=== PATIENT | female | born 1945 | race Caucasian/White ===

== ENCOUNTER 2021-03-12 16:17 | Observation (INO) | payer MEDICARE, OTHER ==
[~2021-03-12] VITALS: Ht 157.5 cm; Wt 63.8 kg
[2021-03-12 16:22] VITALS: BP 130/61
[2021-03-12 16:48] LABS: ABSOLUTE BASOPHILS 0.1 thou/uL (0.0-0.2); ABSOLUTE EOSINOPHILS 0.1 thou/uL (0.0-0.7); ABSOLUTE LYMPHOCYTES 1.8 thou/uL (0.8-5.3); ABSOLUTE MONOCYTES 0.7 thou/uL (0.0-1.2); ABSOLUTE NEUTROPHILS 4.4 thou/uL (1.6-8.1); BASOPHILS 0.8 %; EOSINOPHILS 1.2 %; HEMATOCRIT 39.2 % (37.0-47.0); LYMPHOCYTES 25.5 %; MCH 29.1 pg (26.0-34.0); MCHC 33.3 g/dL (28.0-37.0); MCV 87.4 fL (80.0-100.0); MPV 8.8 fl. (7.2-11.1); NUCLEATED RBCS 0 /100WBC; PLATELET COUNT* 234 thou/uL (150-400); POLYS 62.5 %; RBC 4.48 mil/uL (4.20-5.00); RDW-CV 13.5 % (10.5-14.5)
[2021-03-12 16:51] LABS: APTT 24.8 Seconds (25.0-31.3); PROTIME 10.3 Seconds (9.20-11.50)
[2021-03-12 17:00] LABS: CALCIUM 9.3 mg/dL (8.5-10.1); CREATININE 1.2 mg/dL (0.6-1.3); POTASSIUM 4.2 mmol/L (3.5-5.1)
[2021-03-12 17:14] LABS: ALBUMIN 3.8 g/dL (3.4-5.0); CK-MB MASS 1.4 ng/mL (<0.5-3.6); MAGNESIUM 2.3 mg/dL (1.8-2.4); TOTAL BILIRUBIN 0.4 mg/dL (<0.1-1.0)
[2021-03-12 22:58] VITALS: BP 110/54
[2021-03-13 03:27] VITALS: BP 93/51
[2021-03-13 09:15] VITALS: BP 142/79
--- NOTE | 2021-03-13 11:47 | EKG ---
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
--- NOTE | 2021-03-13 11:51 | EKG ---
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
[2021-03-13 12:00] VITALS: BP 142/79
--- NOTE | 2021-03-13 14:54 | EXE ---
[place] [address] STRESS ECHOCARDIOGRAM Name: CLAUDINE MCLEAN Room: [address] M.R.#: [id number] Admission: 03/12/21 Attend Phys: Refugio Linares Discharge: Date of : 47 Date of Service: 03/13/21 1453 Report #: [id number] THIS REPORT FOR: cc: [facility] - Clinic physician unknown [facility] - Clinic physician unknown Kenn Rich MD [facility] ~ APPROVED REPORT Study performed: 03/13/2021 13:16:08 Exam: Stress Echocardiogram Indication: Chest pain Patient Location: In-Patient Stress Nurse: Deepa Garrison RN Room #: [facility] Supervising Physician: Mal Singh MD Status: routine Ht: 5 ft 2 in HR: 81 bpm BP: 121/70 mmHg Rhythm: NSR Procedure The patient underwent an Exercise Stress Test using the Celestine Protocol. Blood pressure, heart rate, and EKG were monitored. An Echocardiogram was performed by animal technician in four stages in quad fashion. At peak stress, four selected images were obtained and placed side by side with resting images for comparison. Stress Test Details Stress Test: Exercise stress testing was performed using a Celestine protocol. HR Resting HR: 81 bpm Max Heart Rate (APMHR): 146 bpm Max HR Achieved: 132 bpm Target HR (85% APMHR): 124 bpm % of APMHR: 90 Recovery HR: 96 bpm HR response to stress: Normal HR response to stress BP Resting BP: 121/70 mmHg Max BP: 147/68 mmHg Recovery BP: 115/70 mmHg BP response to stress: [place] [address] STRESS ECHOCARDIOGRAM Name: CLAUDINE MCLEAN Room: [address]#: [id number] Admission: 03/12/21 Attend Phys: Refugio Linares Discharge: Date of : 47 Date of Service: 03/13/21 1453 Report #: [id number] stress. ECG Resting ECG: Sinus rhythm normal EKG Stress ECG: No ischemic ST-T changes Arrhythmia: No arrhythmias noted Recovery ECG: No ischemic ST-T changes Recovery Arrhythmia: No arrhythmias noted Clinical Reason for Termination: fatigue Exercise duration: 6 min 2 sec Highest Stage Achieved: Stage 2: 2.5 mph at 12% grade. Exercise capacity: 7.05 METs Pre-Stress Echo The resting Echocardiogram showed normal left ventricular contractility with an estimated Ejection Fraction of about 55-60%. Normal wall motion in all segments on baseline images. Post-Stress Echo The stress Echocardiogram showed normal left ventricular contractility with an estimated Ejection Fraction of about >70%. Normal augmentation of wall motion in all segments on post stress images. Conclusion Clinical Response: Non-ischemic Exercise Capacity: Average Stress ECG Response: Non-ischemic Stress Echo Images: Non-ischemic Other Information Study Quality: Good <ELECTRONICALLY SIGNED> By: Kenn Rich MD, [facility] 03/13/211452 52 52 Kenn Rich MD, FACC /INF
--- NOTE | 2021-03-13 15:01 | NUR ---
PT ARRIVED TO UNIT AT APPROX 1300. PT IS PLEASANTLY A&OX4. ASSESSMENT COMPLETED AND PT VOICES NO CONCERNS. PT DENIES ANY CHEST PAIN. NEW ORDER NOTED TO DC HEPARIN DRIP. PT SITTING UP IN BED ON HER CELLPHONE. NO MEDICATIONS TO ADMINISTER. PT TO DC TO HOME TODAY. DISCHARGE ORDERS IN. PT AWARE AND EXCITED. PT STATES SHE IS READY TO GET BACK TO WORK.
[2021-03-13 16:25] VITALS: BP 142/79
== END 2021-03-13 16:37 | disposition home or self-care (01) ==
LOC: M.ERS 16:17 → M.TBA-ER 19:31 → M.2W 03-13 12:03
PROVIDERS: Emergency Medicine; ADMIT Internal Medicine; ATTEND Internal Medicine
DX: R07.89 Other chest pain (principal); Z20.822 Contact with and (suspected) exposure to COVID-19; R54 Age-related physical debility; I25.2 Old myocardial infarction; Z79.899 Other long term (current) drug therapy